=== PATIENT | female | born 1980 | race Caucasian/White ===

== ENCOUNTER 2017-11-21 07:31 | Emergency (ER) | payer BC ==
[2017-11-21 07:38] VITALS: BP 112/73
--- NOTE | 2017-11-21 07:48 | UC ---
Logan Roach Thomas, scribed for Michel Browning MD on 11/21/17 at 0741 . Ear Complaint HPI - HPI Summary HPI Summary: In Room Note: The patient is a 37 year old female complaining of left ear pain that began today at 02:00 when she woke up. The pain is located in the ear. The pain is rated 5/10. The pain is aggravated by moving the ear. One week ago, the patient had body aches, fevers, and a cough. These symptoms are resolved today except a mild cough. The patient notes yellow nasal discharge with occasional blood for the last week. Today, the patient denies nausea, vomiting, and diarrhea. She has recent sick contacts in her family. Note: Vital signs stable: afebrile, pulse ox 100. Nonsmoker. She is not on any medications. Visit history noncontributory to present event. Nurses Note: (verbal) The patient presents with left ear pain for the five hours. - History of Current Complaint Stated Complaint: EAR ACHE Time Seen by Provider: 11/21/17 07:35 Hx Obtained From: Patient Hx Last Menstrual Period: 28 days ago Onset/Duration: Lasting Hours - 5, Still Present Severity Currently: Moderate Pain Intensity: 5 Pain Scale Used: 0-10 Numeric Aggravating Factors: Other - Ear movement Related History: Other (Noted In Comments) - Presumed influenza 1 week ago - Allergies/Home Medications Allergies/Adverse Reactions: Allergies Allergy/AdvReac Type Severity Reaction Status Date / Time No Known Allergies Allergy Verified 11/21/17 07:34 Home Medications: Home Medications Acetaminophen 500 mg PO DAILY PRN 11/21/17 [History Confirmed 11/21/17] Ibuprofen TAB* [Motrin TAB* 400 MG] 400 mg PO DAILY PRN 11/21/17 [History Confirmed 11/21/17] PMH/Surg Hx/FS Hx/Imm Hx Previously Healthy: Yes - NEGATIVE: CAD, COPD - Surgical History Surgical History: Yes Surgery Procedure, Year, and Place: surgery for dequervain - Family History Known Family History: Positive: None - Social History Occupation: Employed Full-time Lives: With Family Alcohol Use: Rare Substance Use Type: None Smoking Status (MU): Never Smoked Tobacco - Immunization History Most Recent Influenza Vaccination: unsure Most Recent Tetanus Shot: unsure, will offer post Most Recent Pneumonia Vaccination: never Review of Systems ENT: Ear Ache - left, Nasal Discharge - yellow Respiratory: Cough - for the last week, the patient has a residual cough Is Patient Immunocompromised?: No All Other Systems Reviewed And Are Negative: Yes Physical Exam - Summary Physical Exam Summary: Appearance: The patient is well-appearing, is in no pain distress, and is well- nourished. Eyes: Conjunctiva are clear. ENT: The hearing is grossly normal, the pharynx is normal. The external auditory canal is diffusely erythematous. The tympanic membrane is retracted and red, primarily anteriorly. No pain on palpation of the mastoid area. There is no muffled or hoarse voice. Neck: The neck is supple and there is no lymphadenopathy. Respiratory: The chest is nontender. The lungs are clear, there are normal breath sounds, and there is no respiratory distress. Cardiovascular: Heart is regular rate and rhythm. There is no murmur. Abdomen: The abdomen is soft and nontender. There is no organomegaly. Bowel sounds: present Musculoskeletal: Strength is intact. The patient moves all extremities. Neurological: The patient is alert. Psychological: The patient displays age appropriate behavior Skin: Negative for rashes. Triage Information Reviewed: Yes Vital Signs: Initial Vital Signs Temp 98.0 F 11/21/17 07:36 Pulse 82 11/21/17 07:36 Resp 14 11/21/17 07:36 BP 112/73 11/21/17 07:36 Pulse Ox 100 11/21/17 07:36 Vital Signs Reviewed: Yes Ear Complaint Course/Dx - Course Course Of Treatment: The patient is a healthy 37 year old female with the beginning of an external otitis and an otitis media on the left. After a bout of presumed influenza, examination shows injection of the canal and the tympanic membrane. She will be treated with antibiotic drops and PO antibiotics for five days. Patient understands the need to recheck if she develops pain or temperature. Medications have been included in the original chart and reviewed. Patient has been given an antibiotic because findings of physical examination and health history. The risks and benefits of these risks including the possibility of developing clostridium difficile enterocolitis. - Differential Dx/Diagnosis Differential Diagnosis/HQI/PQRI: Otitis Media, URI Provider Diagnoses: Left Otitis Media, Left Otitis Externa Discharge - Sign-Out/Discharge Documenting (check all that apply): Discharge - Discharge Plan Condition: Stable Disposition: HOME Prescriptions: Amoxicillin PO (*) [Amoxicillin 875 MG (*)] 875 mg PO BID #14 tab MDD 2 Ciproflox/Dexameth OTIC.SUSP* [Ciprodex OTIC.SUSP*] 3 drop .SEE ORDER TID #1 btl MDD 3 Patient Education Materials: Otitis Externa (ED), Ear Infection (ED) Referrals: Danay Gillespie MD [Primary Care Provider] - Additional Instructions: WE DISCUSSED: 1. You have 2 infections: your left ear canal and your left eardrum. 2. I have given you enough medication for 7 days. You can take it for 5 days and stop, IF you have felt better for 24 hours prior to stopping. 3. Amoxicillin by mouth, twice a day; cipro drops, 3 drops, three times a day. 4. Re check at any time for increased temperature or pain. Otherwise, recheck if your not improving in 5 days. - Billing Disposition and Condition Condition: STABLE Disposition: HOME The documentation as recorded by the Logan patel Thomas accurately reflects the service I personally performed and the decisions made by me, Michel Browning MD.
== END 2017-11-21 07:50 | disposition home or self-care (01) ==
LOC: UCEAST 07:31
DX: H66.92 Otitis media, unspecified, left ear (principal); H60.92 Unspecified otitis externa, left ear; R05 Cough
CPT/HCPCS: 99212; G0463

== ENCOUNTER 2021-08-06 19:30 | Inpatient (IN) ==
[2021-08-06] MEDS ORDERED: Lactated Ringers 1000 ml BAG 1,000 ML IV ONE (19:40)
[2021-08-06] MEDS ORDERED: Buffered Lidocaine 1% SYRIN 1 ml INTRADERM ONE (19:40)
[2021-08-06] MEDS ORDERED: Lactated Ringers 1000 ml BAG 1,000 ML IV SCH (20:00)
[2021-08-06 20:15] LABS: Hematocrit 41 % (35-47); Hemoglobin 14.5 g/dL (12.0-16.0); Mean Corpuscular HGB Conc 35 g/dL (31-36); Mean Corpuscular Hemoglobin 31 pg (27-31); Mean Corpuscular Volume 89 fL (80-97); Mean Platelet Volume 9.8 fL (7.4-10.4); Platelet Count 227 10^3/uL (150-450); Red Blood Count 4.68 10^6 /uL (3.70-4.87); Red Cell Distribution Width 15 % (10-15); White Blood Count 12.8 10^3/uL (3.5-10.8)
[2021-08-06 20:24] LABS: Activated Partial Thrombo Time 33.4 seconds (26.0-38.0); Fibrinogen 424.2 mg/dL (110.8-404.3); INR 0.95 (0.86-1.15)
[2021-08-06 20:30] LABS: Albumin 2.6 g/dL (3.2-5.2); Calcium 8.4 mg/dL (8.6-10.3); Globulin 2.5 g/dL (2-4); Potassium 3.6 mmol/L (3.5-5.0); Total Bilirubin 1.6 mg/dL (0.2-1.0); Total Protein 5.1 g/dL (6.4-8.9); eGFR CKD-EPI 115.4 (>60)
[2021-08-06] MEDS ORDERED: Calcium Gluconate 1 GM/10 ML VIAL (in Pyxis) IV PUSH PRN (20:37)
[2021-08-06] MEDS ORDERED: Magnesium Sulfate OB PREMIX 4 GM/100 ML BAG IV ONE (20:37)
[2021-08-06] MEDS ORDERED: Penicillin G Potassium IV 5,000,000 UNITS in NS 0.9% 100 ml BAG 100 ML IVPB ONE (20:48)
[2021-08-06 20:58] LABS: Urine Benzodiazepine Screen None Detected (None Detect); Urine Cannabinoids Screen None Detected (None Detect); Urine Opiates Screen None Detected (None Detect)
[2021-08-06] MEDS ORDERED: Magnesium Sulfate OB PREMIX 40 GM/1,000 ML BAG IVPB SCH (21:00)
[2021-08-06] MEDS ORDERED: Oxytocin in LR 20 UNITS/1,000 ML BAG IVPB SCH (21:00)
[2021-08-06] MEDS ORDERED: Penicillin G Potassium IV 3,000,000 UNITS in NS 0.9% 100 ml BAG 100 ML IVPB SCH (21:00)
[2021-08-06 21:04] LABS: ABS Lymphocytes 1.5 10^3/ul (1.0-4.8); ABS Monocytes 1.4 10^3/ul (0-0.8); ABS Neutrophils 9.8 10^3/ul (1.5-7.7); Eosinophil % 0.1 %; Lymphocyte % 11.8 %
[2021-08-06 21:05] LABS: Platelet Count 227 10^3/ul (150-450); Schistocytes ABSENT
[2021-08-07] MEDS ORDERED: Penicillin G Potassium IV 3,000,000 UNITS in NS 0.9% 100 ml BAG 100 ML IVPB SCH (02:00)
[2021-08-07] MEDS ORDERED: Witch Hazel PAD JAR TOPICAL PRN (02:09)
[2021-08-07] MEDS ORDERED: Glycerin ADULT 2.4 gm SUPP PR PRN (02:09)
[2021-08-07] MEDS ORDERED: Dibucaine 1% OINT 28.35 GM TUBE PR PRN (02:09)
[2021-08-07] MEDS ORDERED: Oxytocin in LR 20 UNITS/1,000 ML BAG IVPB SCH (03:00)
[2021-08-07] MEDS ORDERED: Lactated Ringers 1000 ml BAG 1,000 ML IV SCH (03:00)
[2021-08-07 05:56] LABS: Hematocrit 38 % (35-47); Hemoglobin 13.1 g/dL (12.0-16.0); Mean Corpuscular HGB Conc 34 g/dL (31-36); Mean Corpuscular Hemoglobin 31 pg (27-31); Mean Corpuscular Volume 89 fL (80-97); Mean Platelet Volume 9.6 fL (7.4-10.4); Platelet Count 203 10^3/uL (150-450); Red Blood Count 4.28 10^6 /uL (3.70-4.87); Red Cell Distribution Width 15 % (10-15); White Blood Count 14.3 10^3/uL (3.5-10.8)
[2021-08-07 06:06] LABS: ABS Basophils 0.1 10^3/ul (0-0.2); ABS Lymphocytes 1.2 10^3/ul (1.0-4.8); ABS Monocytes 1.2 10^3/ul (0-0.8); ABS Neutrophils 11.9 10^3/ul (1.5-7.7); Eosinophil % 0.1 %; Lymphocyte % 8.3 %; Nucleated Red Blood Cells % 0.1
[2021-08-07 06:15] LABS: Albumin 2.2 g/dL (3.2-5.2); Calcium 7.2 mg/dL (8.6-10.3); Globulin 2.2 g/dL (2-4); Potassium 3.3 mmol/L (3.5-5.0); Total Bilirubin 1.1 mg/dL (0.2-1.0); Total Protein 4.4 g/dL (6.4-8.9); eGFR CKD-EPI 116.3 (>60)
[2021-08-07] MEDS: Enoxaparin 40 MG/0.4 ML SYR SUBCUT SCH (12:39)
[2021-08-08 08:24] VITALS: BP 117/76
[2021-08-08 10:18] LABS: Hematocrit 41 % (35-47); Hemoglobin 13.6 g/dL (12.0-16.0); Mean Corpuscular HGB Conc 34 g/dL (31-36); Mean Corpuscular Hemoglobin 30 pg (27-31); Mean Corpuscular Volume 90 fL (80-97); Mean Platelet Volume 9.3 fL (7.4-10.4); Platelet Count 306 10^3/uL (150-450); Red Blood Count 4.53 10^6 /uL (3.70-4.87); Red Cell Distribution Width 15 % (10-15); White Blood Count 15.1 10^3/uL (3.5-10.8)
[2021-08-08 11:12] LABS: ABS Eosinophils 0.1 10^3/ul (0-0.6); ABS Lymphocytes 1.8 10^3/ul (1.0-4.8); ABS Monocytes 1.6 10^3/ul (0-0.8); ABS Neutrophils 11.7 10^3/ul (1.5-7.7); Eosinophil % 0.5 %; Lymphocyte % 11.6 %
[2021-08-08] MEDS: Enoxaparin 40 MG/0.4 ML SYR SUBCUT SCH (11:58)
[2021-08-08 14:05] LABS: Albumin 2.3 g/dL (3.2-5.2); Calcium 7.8 mg/dL (8.6-10.3); Globulin 2.3 g/dL (2-4); Total Protein 4.6 g/dL (6.4-8.9); eGFR CKD-EPI 116.3 (>60)
== END 2021-08-08 16:25 | disposition home or self-care (01) | DRG 560 ==
LOC: MCHOBOUT 19:30 → MCHOB 20:18
PROVIDERS: ADMIT Obstetrics & Gynecology; ATTEND Obstetrics & Gynecology